=== PATIENT | male | born 1955 | race Caucasian/White ===

== ENCOUNTER → 2019-11-09 10:26 | Outpatient (BNVA) | payer MEDICARE, OTHER, SELFPAY | PROVIDERS: PCP Family Medicine; Visit Provider Urology | DX: C67.9 Malignant neoplasm of bladder, unspecified (principal); C67.0 Malignant neoplasm of trigone of bladder; N39.9 Disorder of urinary system, unspecified; R97.20 Elevated prostate specific antigen [PSA] | CPT/HCPCS: 81001; 84153 ==

== ENCOUNTER → 2020-05-10 10:03 | Outpatient (BNVA) | payer MEDICARE, SELFPAY | PROVIDERS: PCP Family Medicine; Visit Provider Urology | DX: R97.20 Elevated prostate specific antigen [PSA] (principal); C67.0 Malignant neoplasm of trigone of bladder; N40.1 Benign prostatic hyperplasia with lower urinary tract symptoms | CPT/HCPCS: 84153 ==

== ENCOUNTER → 2020-05-17 14:12 | Outpatient (BNVA) | payer MEDICARE, SELFPAY | PROVIDERS: PCP Family Medicine; Visit Provider Internal Medicine | DX: J06.9 Acute upper respiratory infection, unspecified (principal) | CPT/HCPCS: 87635 ==

== ENCOUNTER 2020-06-12 14:40 | Outpatient (CLI) | payer MEDICARE, SELFPAY ==
--- NOTE | 2020-06-12 14:59 | USCV_ITS ---
David Granite Age: 65 Gender: M : 1955 Exam Date: 06/12/2020 15:04 Ordering Phys: Minor Vázquez MD Technologist: Kristie Arellano Exam Location: [facility] [place] Indication: bruit Risk Factors: Previous Vascular Surgery: Right Brachial BP: / Left Brachial BP: / Right Left Velocity (cm/s) Spectral Plaque Velocity (cm/s) Spectral Plaque Syst/Diast Broadening Syst/Diast Broadening 102.50/22.10 Prox CCA 123.50/ 29.40 88.20/ 24.30 Mid CCA 93.10 / 29.40 77.20/ 23.20 Distal CCA 85.00 / 28.30 45.20/ 26.50 Prox ICA 79.00 / 28.30 71.70/ 30.90 Mid ICA 38.50 / 15.20 67.30/ 35.30 Distal ICA 64.80 / 26.30 109.20 ECA 109.30 0.81 ICA/CCA 0.85 Antegrade Vertebral Antegrade 48.50/ 17.60 cm/s 62.80/ 16.20 cm/s Tri Subclavian Tri 99.20 99.20 CONCLUSIONS Right ICA stenosis <50%. Left ICA stenosis <50%. Normal antegrade Doppler flow noted in the right vertebral artery. Normal antegrade Doppler flow noted in the left vertebral artery. Mahamed Villalobos MD (Electronically Signed) Final Date: 12 June 2020 17:01 S
== END 2020-06-12 14:41 | disposition home or self-care (01) ==
PROVIDERS: PCP Family Medicine; Visit Provider Family Medicine
DX: R09.89 Other specified symptoms and signs involving the circulatory and respiratory systems (principal); I65.23 Occlusion and stenosis of bilateral carotid arteries
CPT/HCPCS: 93880

== ENCOUNTER → 2020-11-12 10:17 | Outpatient (BNVA) | payer MEDICARE, SELFPAY | PROVIDERS: PCP Family Medicine; Visit Provider Urology | DX: R97.20 Elevated prostate specific antigen [PSA] (principal); C67.0 Malignant neoplasm of trigone of bladder; N40.1 Benign prostatic hyperplasia with lower urinary tract symptoms | CPT/HCPCS: 81003; 84153 ==

== ENCOUNTER → 2021-04-05 11:06 | Outpatient (BNVA) | payer MEDICARE, SELFPAY | PROVIDERS: PCP Family Medicine; Visit Provider Urology | DX: N40.1 Benign prostatic hyperplasia with lower urinary tract symptoms (principal); C67.0 Malignant neoplasm of trigone of bladder; N21.0 Calculus in bladder | CPT/HCPCS: 81003; 82365; 87086; 88112; 88300 ==

== ENCOUNTER 2021-04-19 07:41 | Outpatient (CLI) | payer MEDICARE, SELFPAY ==
[2021-04-19 08:49] LABS: Blood Urea Nitrogen 18 mg/dL (8-23); Glomerular Filtration Rate 60.6 mL/min (90-130)
[2021-04-19] MEDS: iohexol 300 mg/mL 100 mL Btl IV (08:58)
--- NOTE | 2021-04-19 09:30 | CT_ITS ---
WS: [id number] CT ABDOMEN AND PELVIS WITH AND WITHOUT CONTRAST HISTORY: BLADDER CANCER TECHNIQUE: Unenhanced 5 mm axial imaging first performed through the abdomen. Post contrast imaging t hrough the abdomen and pelvis. Oral contrast has been provided. Sagittal and coronal reformats are s ubmitted. All CT scans at [facility] use at least one of these dose optimization techniqu es: automated exposure control; mA and/or kV adjustment per patient size (includes targeted exams whe re dose is matched to clinical indication); or iterative reconstruction. CONTRAST: Omnipaque 300; 95 mL IV. DLP: 3202.42 mGy.cm COMPARISON: None available. Lung bases are clear. Heart is mildly enlarged. There is a small hiatal hernia. Enlarged pulmonary ar bandar 3.7 cm. Liver, spleen, gallbladder, pancreas and adrenal glands are normal. Very mild atherosclerosis aorta. No aneurysm. Portal vein and SMV are negative. No ascites or adenopathy. Stomach is moderately disten ded with fluid. RIGHT kidney: Mild cortical thinning. There are a few focal areas of scarring in the cortex. No solid mass or obstruction. RIGHT ureter is normal caliber. LEFT kidney: Normal size with kidney measuring 11.4 cm in length. Cyst upper pole measures 16 x 19 mm . There are a few other scattered hypodensities which are too small to characterize. Small parapelvic cysts in the mid to lower kidney. No solid mass. Normal caliber ureter. The appendix is normal. No GI tract obstruction. Numerous diverticula in the descending and sigmoid c olon without acute diverticulitis. No free fluid or adenopathy. There is a small 7 mm lymph node in t he LEFT obturator region. Not significantly enlarged. Urinary bladder is moderately well distended. Prostate gland is enlarged encroaching into the urinary bladder. Prostate gland extends over a length of 6.8 cm x 5.6 x 5.9 cm. There is a calcific density in the LEFT lateral bladder which is probably a bladder calcification. Calcification is close to the orifice of the LEFT ureter but there is no renal obstruction. Advanced degenerative changes in the lower thoracic spine and mild throughout the lumbar spine. CT/CT abdomen pelvis wo/w [id number] IMPRESSION: 1. No renal obstruction or solid mass identified. 2. Mild cortical thinning bilaterally. 3. LEFT renal cysts and a few additional areas of decreased attenuation which are too small to characterize. 4. No delayed imaging was performed to evaluate the ureters or urinary bladder . 5. Markedly enlarged prostate gland with encroachment into the bladder. 6. There is a calcification in the LEFT urinary bladder which is probably a bl adder calcification. 7. Pulmonary hypertension.
== END 2021-04-19 07:42 | disposition home or self-care (01) ==
PROVIDERS: PCP Family Medicine; Visit Provider Urology
DX: C67.0 Malignant neoplasm of trigone of bladder (principal); I27.20 Pulmonary hypertension, unspecified; N32.89 Other specified disorders of bladder; N40.0 Benign prostatic hyperplasia without lower urinary tract symptoms; N28.1 Cyst of kidney, acquired
CPT/HCPCS: 36415; 74178; 81003; 82565; 84520

== ENCOUNTER → 2021-05-13 10:18 | Outpatient (BNVA) | payer MEDICARE, SELFPAY | PROVIDERS: PCP Family Medicine; Visit Provider Urology | DX: R97.20 Elevated prostate specific antigen [PSA] (principal); N40.1 Benign prostatic hyperplasia with lower urinary tract symptoms; N20.9 Urinary calculus, unspecified; N21.0 Calculus in bladder; C67.0 Malignant neoplasm of trigone of bladder | CPT/HCPCS: 84153 ==

== ENCOUNTER → 2021-08-13 08:59 | Outpatient (BNVA) | payer MEDICARE, SELFPAY | PROVIDERS: PCP Family Medicine; Visit Provider Urology | DX: N40.1 Benign prostatic hyperplasia with lower urinary tract symptoms (principal); N21.0 Calculus in bladder; N20.9 Urinary calculus, unspecified; R97.20 Elevated prostate specific antigen [PSA] | CPT/HCPCS: 81003 ==

== ENCOUNTER 2022-02-11 09:47 | Outpatient (CLI) | payer MEDICARE, SELFPAY | END 2022-02-11 09:48 | disposition home or self-care (01) | LOC: LAB 09:53 | PROVIDERS: PCP Family Medicine; Visit Provider Urology | DX: R97.20 Elevated prostate specific antigen [PSA] (principal); N21.0 Calculus in bladder; N20.9 Urinary calculus, unspecified; C67.0 Malignant neoplasm of trigone of bladder; N40.1 Benign prostatic hyperplasia with lower urinary tract symptoms; R31.0 Gross hematuria | CPT/HCPCS: 36415; 51741; 51798; 52000; 81003; 84153; 88112; 99213 ==

== ENCOUNTER 2022-11-05 11:42 | Outpatient (CLI) | payer MEDICARE, SELFPAY ==
[2022-11-05 12:40] LABS: Prostate Specific AG Urology 3.86 ng/mL (0-4)
== END 2022-11-05 11:43 | disposition home or self-care (01) ==
LOC: LAB 11:53
PROVIDERS: PCP Family Medicine; Visit Provider Urology
DX: R97.20 Elevated prostate specific antigen [PSA] (principal)
CPT/HCPCS: 36415; 84153

== ENCOUNTER → 2022-11-11 09:18 | Outpatient (BNVA) | payer MEDICARE, SELFPAY | PROVIDERS: PCP Family Medicine; Visit Provider Urology | DX: C67.0 Malignant neoplasm of trigone of bladder (principal); R97.20 Elevated prostate specific antigen [PSA]; N40.1 Benign prostatic hyperplasia with lower urinary tract symptoms; N20.9 Urinary calculus, unspecified; N21.0 Calculus in bladder | CPT/HCPCS: 51741; 51798; 52000; 81003; 99213 ==

== ENCOUNTER → 2023-11-26 08:17 | Outpatient (BNVA) | payer MEDICARE, SELFPAY | PROVIDERS: PCP Family Medicine; Visit Provider Family Medicine | DX: Z51.81 Encounter for therapeutic drug level monitoring (principal); Z13.220 Encounter for screening for lipoid disorders; R97.20 Elevated prostate specific antigen [PSA]; I10 Essential (primary) hypertension; R73.09 Other abnormal glucose; E55.9 Vitamin D deficiency, unspecified | CPT/HCPCS: 80053; 80061; 82306; 83036; 84153; 85025 ==

== ENCOUNTER → 2024-01-06 08:12 | Outpatient (BNVA) | payer MEDICARE, SELFPAY | PROVIDERS: PCP Family Medicine; Visit Provider Nurse Practitioner Family | DX: L57.0 Actinic keratosis (principal); L82.0 Inflamed seborrheic keratosis; L82.1 Other seborrheic keratosis; L57.8 Other skin changes due to chronic exposure to nonionizing radiation; D22.39 Melanocytic nevi of other parts of face | CPT/HCPCS: 17000; 17110; 99213 ==

== ENCOUNTER 2024-02-09 14:32 | Outpatient (CLI) | payer MEDICARE, SELFPAY ==
--- NOTE | 2024-02-09 14:35 | XRR_ITS ---
PROCEDURE INFORMATION: Exam: XR Right Knee Exam date and time: 02/09/2024 2:43 PM Age: 68 years old Clinical indication: Pain; Knee; Right; Additional info: Right knee pain TECHNIQUE: Imaging protocol: Radiologic exam of the right knee. Views: 3 views. COMPARISON: No relevant prior studies available. FINDINGS: Bones/joints: Normal. Soft tissues: Normal. XR/XR knee RT 3V* [id number] IMPRESSION: No acute findings.
== END 2024-02-09 14:33 | disposition home or self-care (01) ==
LOC: RAD 14:33
PROVIDERS: PCP Family Medicine; Visit Provider Family Medicine
DX: M25.561 Pain in right knee (principal)
CPT/HCPCS: 73562

== ENCOUNTER → 2024-11-29 07:11 | Outpatient (BNVA) | payer MEDICARE, OTHER, SELFPAY | PROVIDERS: PCP Family Medicine; Visit Provider Family Medicine | DX: Z13.6 Encounter for screening for cardiovascular disorders (principal); R73.03 Prediabetes; E55.9 Vitamin D deficiency, unspecified; R97.20 Elevated prostate specific antigen [PSA]; Z51.81 Encounter for therapeutic drug level monitoring | CPT/HCPCS: 80053; 80061; 82306; 83036; 84153; 85025 ==

== ENCOUNTER → 2025-01-05 08:55 | Outpatient (BNVA) | payer MEDICARE, OTHER, SELFPAY | PROVIDERS: PCP Family Medicine; Visit Provider Nurse Practitioner Family | DX: L23.9 Allergic contact dermatitis, unspecified cause (principal); L29.89 Other pruritus; L82.1 Other seborrheic keratosis; D22.39 Melanocytic nevi of other parts of face; L82.0 Inflamed seborrheic keratosis; R20.9 Unspecified disturbances of skin sensation; R20.8 Other disturbances of skin sensation; R23.8 Other skin changes; L53.8 Other specified erythematous conditions; L57.0 Actinic keratosis | CPT/HCPCS: 17000; 17110; 99214 ==

== ENCOUNTER → 2025-07-31 11:01 | Outpatient (BNVA) | payer MEDICARE, OTHER, SELFPAY | PROVIDERS: PCP Family Medicine; Visit Provider Family Medicine | DX: R97.20 Elevated prostate specific antigen [PSA] (principal) | CPT/HCPCS: 84153 ==